=== PATIENT | male | born 1985 ===

== ENCOUNTER 2023-01-12 13:04 | Outpatient (CLI) | payer OTHER ==
[~2023-01-12 13:04] MED LIST: Iopamidol 370 76% 100 ML VIAL ONE
== END 2023-01-12 13:05 | disposition home or self-care (01) ==
LOC: CT 13:04
PROVIDERS: ATTEND Internal Medicine
DX: R59.0 Localized enlarged lymph nodes (principal)
CPT/HCPCS: 70491; Q9967